=== PATIENT | male | born 1960 | race Caucasian/White ===

== ENCOUNTER 2020-05-29 12:51 | Outpatient (RCR) | payer OTHER, SELFPAY ==
[2020-05-29] MEDS: COVID-19 VACC, MRNA(PFIZER)/PF 30 MCG/0.3 ML SYRINGE IM (13:00)
[2020-06-19] MEDS: COVID-19 VACC, MRNA(PFIZER)/PF 30 MCG/0.3 ML SYRINGE IM (15:51)
== END 2020-08-19 23:59 ==
LOC: IMMUN 12:51
PROVIDERS: PCP Preventive Medicine Occupational Medicine; Referring Provider Family Medicine; Visit Provider Family Medicine
DX: Z23 Encounter for immunization (principal)
CPT/HCPCS: 0001A; 0002A; 91300

== ENCOUNTER 2024-01-21 09:02 | Emergency (ER) | payer OTHER, SELFPAY ==
[2024-01-21 09:03] VITALS: BP 157/82; PULSE 82; RESP 21; TEMP 36.7; O2SAT 93; BMI 42.1
[2024-01-21 10:19] VITALS: PULSE 83; RESP 14
[2024-01-21 10:30] VITALS: BP 127/93; PULSE 115; RESP 17
[2024-01-21 10:45] VITALS: BP 124/112; PULSE 87; RESP 23
[2024-01-21] MEDS: Famotidine 200 MG/20 ML MDV 20 MG in 0.9% Normal Saline (Pres. free 8 ML 300 MG IV (10:55)
[2024-01-21] MEDS: MethylPREDNISolone 125 MG/2 ML Vial IV (10:55)
[2024-01-21] MEDS: DiphenhydrAMINE 50 MG/ML Syringe IV (10:55)
[2024-01-21 11:00] VITALS: BP 123/84; PULSE 113; RESP 18
[2024-01-21 11:30] VITALS: BP 134/78; PULSE 115; RESP 20; TEMP 36.6; O2SAT 100
== END 2024-01-21 11:42 | disposition home or self-care (01) ==
PROVIDERS: Emergency Provider Surgery; PCP Preventive Medicine Occupational Medicine; Visit Provider Surgery
DX: R11.2 Nausea with vomiting, unspecified (principal); R19.7 Diarrhea, unspecified; L50.9 Urticaria, unspecified; T78.1XXA Other adverse food reactions, not elsewhere classified, initial encounter; Z79.52 Long term (current) use of systemic steroids; Z79.899 Other long term (current) drug therapy
CPT/HCPCS: 96374; 96375; 99285; A4216; J3490